=== PATIENT | female | born 1950 | race Caucasian/White ===

== ENCOUNTER → 2021-07-23 | Outpatient (CLI) | payer MEDICARE, OTHER ==
[~2021-07-23] MED LIST: ALBUTEROL2.5 MG/0.1 INH; ALBUTEROL2.5 MG/0.1 PO; AVELOX 400 MG400 M1 PO; CEFTIN500 MG PO; FISH OIL 1,0001 EAC5 PO; FLOVENT DISKU250 MCG PO; MILLTRIUM SENI1 EACH PO; PREDNISONE 10 M10 M1; PREMPRO 0.3 MG1 EACH PO; SINGULAIR 10 MG10 M1 PO; SPIRIVA INH; STERAPRED DS10 MG PO; SYNTHROID112 MCG PO; SYNTHROID300 MCG; VENTOLIN HFA INH8 GM INH
== END ==
LOC: M.LAB 10:21
PROVIDERS: ATTEND Internal Medicine Gastroenterology
DX: Z01.812 Encounter for preprocedural laboratory examination (principal); U07.1 COVID-19